=== PATIENT | female | born 1950 | race African-American/Black ===

== ENCOUNTER 2017-03-06 09:41 | Outpatient (CLI) | payer MEDICARE, BC | END 2017-03-06 09:42 | disposition home or self-care (01) | LOC: BICMAMMO 09:41 | PROVIDERS: ATTEND Family Medicine | DX: Z12.31 Encounter for screening mammogram for malignant neoplasm of breast (principal); Z85.850 Personal history of malignant neoplasm of thyroid | CPT/HCPCS: 77063 ==

== ENCOUNTER 2017-10-29 13:01 | Outpatient (CLI) | payer MEDICARE, BC | END 2017-10-29 13:02 | disposition home or self-care (01) | LOC: BICULT 13:01 | PROVIDERS: ATTEND Internal Medicine Endocrinology, Diabetes & Metabolism | DX: Z08 Encounter for follow-up examination after completed treatment for malignant neoplasm (principal); Z85.850 Personal history of malignant neoplasm of thyroid; Z90.89 Acquired absence of other organs | CPT/HCPCS: 76536 ==